=== PATIENT | male | born 1995 | race Caucasian/White ===

== ENCOUNTER → 2017-03-27 | Outpatient (CLI) | payer OTHER ==
--- NOTE | 2017-03-27 16:06 | RAD ---
Indication pain. AP and lateral views of the lumbar spine were obtained as well as a coned view targeted to the lumbosacral junction. There is slight straightening to the normal curve of the lumbar spine. Vertebral height alignment and disc spaces are normal. There are no significant degenerative changes. No acute finding is seen. IMPRESSION: Slight straightening in otherwise unremarkable plain films of the lumbar spine
== END | disposition home or self-care (01) ==
LOC: RAD 15:21
PROVIDERS: ATTEND Physician Assistant
DX: M54.5 Low back pain (principal)
CPT/HCPCS: 72100

== ENCOUNTER → 2018-07-10 | Outpatient (CLI) | payer OTHER ==
[2018-07-10 08:26] LABS: BARBITURATES NEG (NEG); BENZODIAZEPINES NEG (NEG); CANNABINOIDS NEG (NEG); COCAINE NEG (NEG); METHADONE NEG (NEG); OPIATES NEG (NEG); PHENCYCLIDINE NEG (NEG)
[2018-07-10 08:30] LABS: AMPHETAMINE/METHAMPHETAMINE NEG (NEG)
== END | disposition home or self-care (01) ==
LOC: LAB 06:25
PROVIDERS: ATTEND Family Medicine
DX: F90.2 Attention-deficit hyperactivity disorder, combined type (principal)
CPT/HCPCS: 80307; G0479

== ENCOUNTER → 2019-10-23 | Outpatient (CLI) | payer OTHER ==
--- NOTE | 2019-10-23 10:38 | RAD ---
EXAM: Chest, 2 views. HISTORY: Pneumonia. COMPARISON: None. FINDINGS: 2 views of the chest are obtained. There is no infiltrate, pleural effusion or pneumothorax. The heart is normal in size. IMPRESSION: No acute pulmonary finding. Electronically signed by: Shraddha Jackson MD (10/23/2019 10:35 AM) [place] [id number]
== END | disposition home or self-care (01) ==
LOC: RAD 10:04
PROVIDERS: ATTEND Nurse Practitioner Family
DX: J18.9 Pneumonia, unspecified organism (principal)
CPT/HCPCS: 71046

== ENCOUNTER 2021-05-15 19:57 | Emergency (ER) | payer OTHER ==
[~2021-05-15] VITALS: Ht 175.3 cm; Wt 88.6 kg
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
[2021-05-15 21:05] VITALS: BP 111/61
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
[2021-05-15] MEDS ORDERED: IBUP-1007 PO (21:17)
[2021-05-15] MEDS ORDERED: NEOM10DR32 EACH EAR (21:17)
== END 2021-05-15 21:23 | disposition home or self-care (01) ==
LOC: ER 19:57
DX: H92.02 Otalgia, left ear (principal); M54.2 Cervicalgia; R68.84 Jaw pain; R51.9 Headache, unspecified
CPT/HCPCS: 70450; 70486; 72125; 99285-25